=== PATIENT | female | born 1995 | race American Indian/Alaskan Native ===

== ENCOUNTER 2016-11-03 20:23 | Emergency (ER) | payer SELFPAY ==
[2016-11-03] MEDS ORDERED: BENADRYL PO ONE ×2 (20:44→20:47)
[2016-11-04] MEDS ORDERED: BENADRYL PO ONE (01:25)
[2016-11-04] MEDS ORDERED: PEPCID PO ONE (01:25)
[2016-11-04] MEDS ORDERED: DECADRON IM ONE (01:25)
--- NOTE | 2016-11-04 02:04 | Emergency Department Report ---
ED Rash HPI - HPI Chief Complaint: Skin Rash Stated Complaint: POSS ALLERGIC REACTION Duration: 2 Days Location: Chest, Back, Abdomen, Upper Extremities, Lower Extremities Suspected Cause: Unknown Rash Symptoms: Yes Itching, No Facial Swelling, No Tongue/Oral Swelling, No Breathing Difficulties, No Choking Sensation, No Wheezing/Dyspnea, No Peeling, No Blistering, No Fever, No Lightheaded, No Malaise, No Myalgias Severity: mild Other History: 21 year old female presents to ED with pruritis and intermittent hives x2 days. patient is stable, neurologically intact and in no acute distress. patient denies Diff breathing, tongue swelling, facial swelling, wheezing, chest pain. patient has neg preg test today. ED Review of Systems ROS: Stated complaint: POSS ALLERGIC REACTION Other details as noted in HPI Constitutional: denies: chills, fever Eyes: denies: eye pain, eye discharge, vision change ENT: denies: ear pain, throat pain Respiratory: denies: cough, shortness of breath, wheezing Cardiovascular: denies: chest pain, palpitations Endocrine: no symptoms reported Gastrointestinal: denies: abdominal pain, nausea, diarrhea Genitourinary: denies: urgency, dysuria, discharge Musculoskeletal: denies: back pain, joint swelling, arthralgia Skin: rash, pruritus. denies: lesions Neurological: denies: headache, weakness, paresthesias Psychiatric: denies: anxiety, depression Hematological/Lymphatic: denies: easy bleeding, easy bruising ED Past Medical Hx - Past Medical History Previous Medical History?: No - Surgical History Past Surgical History?: No - Social History Smoking Status: Never Smoker Substance Use Type: None - Medications Home Medications: Home Medications Medication Instructions Recorded Confirmed Last Taken Type Hydroxyzine HCl 25 mg PO BID #10 tablet 11/04/16 Unknown Rx Triamcinolone 0.1% [Kenalog 0.1% 1 applic TP TID PRN #1 tube 11/04/16 Unknown Rx CREAM] Rash Exam - Exam General: Vital signs noted. No distress. Alert and acting appropriately. HEENT: No Periorbital Edema, No Conjuctival Injection, No Chemosis, No Perioral Edema, No Tongue Edema, No Uvular Edema, No Compromised Airway, No Drooling Lungs: Yes Good Air Exchange (Normal Breath Sounds), No Wheezes, No Ronchi, No Stridor, No Cough, No Labored Respirations, No Retractions, No Use of Accessory Muscles, No Other Abnormal Lung Sounds Heart: Yes Regular, No Murmur Skin: Yes Urticarial Rash (patient has mild hives present over abdomen, back, bilateral legs), No Maculopapular Rash, No Morbilliform rash, No Bulla(e), No Excoriations, No Weeping, No Tenderness, No Erythema, No Edema, No Encrustations Other: Positive: Abdomen Normal, Neurologic Normal, Musculoskeletal Normal ED Course Vital Signs 11/03/16 21:14 Temperature 98.7 F Pulse Rate 67 Respiratory 20 Rate Blood Pressure 111/61 [Right] O2 Sat by Pulse 99 Oximetry ED Medical Decision Making - Lab Data Labs 11/04/16 Unknown Urine HCG, Qual Negative - Medical Decision Making 21 year old female presents to ED with mild pruritis and mild contact dermatitis /hives. patient has recieved IM decadron, benadryl and pepcid during ED visit. patient is stable, neurologically intact and in no acute distress. patient has no diff breathing or facial/oral swelling. patient has decreased pruritis on exam. Critical care attestation.: If time is entered above; I have spent that time in minutes in the direct care of this critically ill patient, excluding procedure time. ED Disposition Clinical Impression: Contact dermatitis Qualifiers: Contact dermatitis type: unspecified Contact dermatitis trigger: unspecified trigger Qualified Code(s): L25.9 - Unspecified contact dermatitis, unspecified cause Disposition: DC-01 TO HOME OR SELFCARE Is pt being admited?: No Does the pt Need Aspirin: No Condition: Stable Instructions: Contact Dermatitis (ED) Prescriptions: Hydroxyzine HCl 25 mg PO BID #10 tablet Triamcinolone 0.1% [Kenalog 0.1% CREAM] 1 applic TP TID PRN #1 tube PRN Reason: Itching Referrals: PRIMARY CARE,MD [Primary Care Provider] - 3-5 Days Forms: Work/School Release Form(ED)
[2016-11-04 02:09] VITALS: BP 115/73
== END 2016-11-04 02:08 | disposition home or self-care (01) ==
LOC: ED 20:23
DX: L25.9 Unspecified contact dermatitis, unspecified cause (principal); Z91.013 Allergy to seafood
CPT/HCPCS: 81025; 96372; 99283; J1100